=== PATIENT | male | born 1955 | race Caucasian/White ===

== ENCOUNTER 2018-09-29 07:55 | Inpatient (IN) | payer MEDICARE, OTHER ==
[2018-09-29] VITALS (13 sets, daily range): BP systolic 108–149; BP diastolic 62–103
[~2018-09-29] VITALS: Ht 177.8 cm; Wt 110.3 kg
[2018-09-29] MEDS ORDERED: OMEP20CA12 PO (08:16)
[2018-09-29] MEDS ORDERED: IBUP-1780 PO (08:16)
--- NOTE | 2018-09-29 08:28 | ED GI ---
General Chief Complaint: Abdominal/GI Problems Stated Complaint: VOMITING UP BLOOD Nursing Triage Note: AMBULATED TO ROOM 05 WITH COMPLAINTS OF VOMITING BLOOD AND BLACK STOOLS STARTING IN THE MIDDLE OF THE NIGHT. STATES HE FLEW IN FROM [place] YESTERDAY AND DID NOT FEEL WELL ON THE PLANE. Sepsis Screen: No Definite Risk History of Present Illness Date Seen by Provider: September 29, 2018 Time Seen by Provider: 08:15 Timing/Duration: 4-6 Hours Severity/Quality: Other (no pain) Location: Other (no pain) Radiation: No Radiation Activities at Onset: Sleeping Modifying Factors: Improves With Lying down (worsens) Associated Symptoms: Nausea/Vomiting The patient is a pleasant 63-year-old male who presents for evaluation of nausea and vomiting since around 0330 this morning. He reports his vomitus has been dark in color. He vomited approximately 5 times this morning. She also reports dark colored stools which he first noticed this morning. He reports that he is from the [facility] and recently flew here for a family graduation ceremony. He has had no abdominal or other pain since his symptoms began. He takes a baby aspirin daily but reports not taking one for a few days. He also states that he used his take a lot of ibuprofen but has not taken any in the last few days. He does take omeprazole but denies any history of gastric ulcer or GI bleeding in the past. He did bring in a sample in a cup of his dark hematemesis to be evaluated. He is alert and oriented 4, calm, and appears to be in no distress this time. He denies chest pain, shortness of breath, abdominal pain, back or flank pain, urinary symptoms, dizziness, diaphoresis, syncope, fevers or chills, rectal pain, or recent trauma. He does report a history of diverticulitis in the past. Allergies and Home Medications Allergies Coded Allergies: No Known Drug Allergies (Unverified , 09/29/18) Patient Home Medication List Home Medication List Reviewed: Yes Review of Systems Review of Systems Constitutional: no symptoms reported EENTM: No Symptoms Reported Respiratory: No Symptoms Reported Cardiovascular: No Symptoms Reported Gastrointestinal: See HPI, Nausea, Rectal Bleeding (dark stools), Vomiting ( dark vomiting/coffee ground emesis) Genitourinary: No Symptoms Reported Musculoskeletal: no symptoms reported Skin: no symptoms reported Psychiatric/Neurological: No Symptoms Reported Endocrine: No Symptoms Reported Hematologic/Lymphatic: No Symptoms Reported All Other Systems Reviewed Negative Unless Noted: Yes Past Catasqd-Richrl-Ornvib Hx Past Med/Social Hx: Reviewed Nursing Past Med/Soc Hx, Reviewed and Corrections made Patient Social History Alcohol Use: Occasionally Uses Recreational Drug Use: No Smoking Status: Never a Smoker Recent Foreign Travel: No Contact w/Someone Who Travel: No Recent Infectious Disease Expo: No Recent Hopitalizations: No Seasonal Allergies Seasonal Allergies: No Past Medical History Surgeries: Yes Orthopedic, Vasectomy Respiratory: No Cardiac: Yes (PAST HISTORY OF HYPERTENSION) Genitourinary: No Gastrointestinal: Yes (diverticulitis, gerd) Endocrine: No HEENT: No Cancer: No Psychosocial: No Integumentary: No Physical Exam Vital Signs Vital Signs - First Documented 09/29/18 08:00 Temp 98.5 Pulse 97 Resp 16 B/P (MAP) 106/66 (79) Pulse Ox 94 O2 Delivery Room Air Capillary Refill : Less Than 3 Seconds Height/Weight/BMI Height: 5'10.00" Weight: 223lbs. oz. 101.074338fx; BMI Method:Stated General Appearance: WD/WN, no apparent distress HEENT: PERRL/EOMI, normal ENT inspection, TMs normal, pharynx normal Neck: non-tender, full range of motion, supple, normal inspection Respiratory: chest non-tender, lungs clear, normal breath sounds, no respiratory distress, no accessory muscle use Cardiovascular: regular rate, rhythm, no edema, no JVD, no murmur Peripheral Pulses: 2+ Dorsalis Pedis (R), 2+ Left Dors-Pedis (L), 2+ Radial Pulses (R), 2+ Radial Pulses (L) Gastrointestinal: normal bowel sounds, non tender, soft, no organomegaly, no pulsatile mass Extremities: normal range of motion, non-tender, normal inspection, no pedal edema, no calf tenderness Back: normal inspection, no CVA tenderness Neurologic/Psychiatric: assembler for puller over hand II-XII nml as tested, no motor/sensory deficits, alert, normal mood/affect, oriented x 3 Skin: normal color, warm/dry Lymphatic: no adenopathy Progress/Results/Core Measures Results/Orders Lab Results Laboratory Tests Test 09/29/18 08:20 09/29/18 09:05 09/29/18 09:25 Range/Units White Blood Count 11.9 H 4.3-11.0 10^3/uL Red Blood Count 4.03 L 4.35-5.85 10^6/uL Hemoglobin 12.7 L 13.3-17.7 G/DL Hematocrit 37 L 40-54 % Mean Corpuscular Volume 92 80-99 FL Mean Corpuscular Hemoglobin 32 25-34 PG Mean Corpuscular Hemoglobin Concent 34 32-36 G/DL Red Cell Distribution Width 12.1 10.0-14.5 % Platelet Count 261 130-400 10^3/uL Mean Platelet Volume 9.8 7.4-10.4 FL Neutrophils (%) (Auto) 70 42-75 % Lymphocytes (%) (Auto) 24 12-44 % Monocytes (%) (Auto) 5 0-12 % Eosinophils (%) (Auto) 1 0-10 % Basophils (%) (Auto) 1 0-10 % Neutrophils # (Auto) 8.3 H 1.8-7.8 X 10^3 Lymphocytes # (Auto) 2.8 1.0-4.0 X 10^3 Monocytes # (Auto) 0.6 0.0-1.0 X 10^3 Eosinophils # (Auto) 0.1 0.0-0.3 10^3/uL Basophils # (Auto) 0.1 0.0-0.1 10^3/uL Prothrombin Time 14.7 12.2-14.7 SEC INR Comment 1.1 0.8-1.4 Activated Partial Thromboplast Time 28 24-35 SEC Sodium Level 142 135-145 MMOL/L Potassium Level 4.3 3.6-5.0 MMOL/L Chloride Level 102 98-107 MMOL/L Carbon Dioxide Level 23 21-32 MMOL/L Anion Gap 17 H 5-14 MMOL/L Blood Urea Nitrogen 38 H 7-18 MG/DL Creatinine 0.90 0.60-1.30 MG/DL Estimat Glomerular Filtration Rate > 60 BUN/Creatinine Ratio 42 Glucose Level 191 H 70-105 MG/DL Calcium Level 8.8 8.5-10.1 MG/DL Corrected Calcium 8.7 8.5-10.1 MG/DL Total Bilirubin 1.5 H 0.1-1.0 MG/DL Aspartate Amino Transf (AST/SGOT) 30 5-34 U/L Alanine Aminotransferase (ALT/SGPT) 51 0-55 U/L Alkaline Phosphatase 58 40-136 U/L Total Protein 6.6 6.4-8.2 GM/DL Albumin 4.1 3.2-4.5 GM/DL Amylase Level 25 25-125 U/L Lipase 20 8-78 U/L Gastric Fluid Occult Blood POSITIVE H NEGATIVE Stool Occult Blood Immunoassay NEGATIVE Urine Color YELLOW Urine Clarity CLEAR Urine pH 6.5 5-9 Urine Specific [place] 1.010 L 1.016-1.022 Urine Protein TRACE NEGATIVE Urine Glucose (UA) NEGATIVE NEGATIVE Urine Ketones 1+ H NEGATIVE Urine Nitrite NEGATIVE NEGATIVE Urine Bilirubin NEGATIVE NEGATIVE Urine Urobilinogen 0.2 NORMAL MG/DL Urine Leukocyte Esterase NEGATIVE NEGATIVE Urine RBC (Auto) NEGATIVE NEGATIVE Urine RBC NONE /HPF Urine WBC NONE /HPF Urine Squamous Epithelial Cells 0-2 /HPF Urine Crystals NONE /LPF Urine Bacteria NONE /HPF Urine Casts NONE /LPF Urine Mucus SMALL H /LPF Urine Culture Indicated NO My Orders Orders - TSERING KLINE DO Comprehensive Metabolic Panel (09/29/18 08:17) Lipase (09/29/18 08:17) Amylase (09/29/18 08:17) Ua Culture If Indicated (09/29/18 08:17) Ed Iv/Invasive Line Start (09/29/18 08:17) Cbc With Automated Diff (09/29/18 08:17) Ct Abdomen/Pelvis W (09/29/18 08:17) Pantoprazole Injection (Protonix Injecti (09/29/18 08:30) Protime With Inr (09/29/18 08:17) Partial Thromboplastin Time (09/29/18 08:17) Type And Screen (09/29/18 08:17) Ondansetron Injection (Zofran Injectio (09/29/18 08:30) Ns (Ivpb) (Sodium C... W/Pantoprazole In (09/29/18 08:30) Ns Iv 1000 Ml (Sodium Chloride 0.9%) (09/29/18 08:30) Occult Blood Stool (09/29/18 08:30) Iohexol Injection (Omnipaque 350 Mg/Ml 1 (09/29/18 09:00) Received Contrast (Hold Metformin- Contr (09/29/18 09:00) Sodium Chloride Flush (Catheter Flush Sy (09/29/18 09:00) Ns (Ivpb) (Sodium Chloride 0.9% Ivpb Bag (09/29/18 09:00) Occult Blood Stool (09/29/18 09:18) Occult Blood,Gastric Fluid (09/29/18 09:18) Medications Given in ED Current Medications Medications Dose Ordered Sig/Jm Route Start Time Stop Time Status Last Admin Dose Admin Iohexol 100 ml ONCE ONCE IV 09/29/18 09:00 09/29/18 09:03 DC 09/29/18 09:14 100 ML Ondansetron HCl 4 mg ONCE ONCE IVP 09/29/18 08:30 09/29/18 08:31 DC 09/29/18 08:26 4 MG Pantoprazole 80 mg ONCE ONCE IV 09/29/18 08:30 09/29/18 08:31 DC 09/29/18 08:27 80 MG Sodium Chloride 10 ml NEEDED PRN IV 09/29/18 09:00 09/29/18 09:14 10 ML Sodium Chloride 100 ml ONCE ONCE IV 09/29/18 09:00 09/29/18 09:03 DC 09/29/18 09:14 80 ML Vital Signs/I&O 09/29/18 08:00 Temp 98.5 Pulse 97 Resp 16 B/P (MAP) 106/66 (79) Pulse Ox 94 O2 Delivery Room Air Blood Pressure Mean: 79 Progress Progress Note : Time: 09:55 Progress Note @0955 - Patient informed of lab and imaging results. He does agree with the plan to be admitted to have a GI consultation/evaluation and likely EGD. VSS. Dr. Alexia Basilio paged for admission. Diagnostic Imaging Diagonstic Imaging: CT Plain Films/CT/US/NM/MRI: abdomen Comments [facility] [place] NAME: MARIJA GRIFFITHS [facility] REC#: [id number] PT STATUS: REG ER : 1955 PHYSICIAN: TSERING KLINE DO ADMIT DATE: 09/29/18/ER FS Draft Date of Exam:09/29/18 CT ABDOMEN/PELVIS W PROCEDURE: CT abdomen and pelvis with contrast. TECHNIQUE: Multiple contiguous axial images were obtained through the abdomen and pelvis after administration of intravenous contrast. Auto Exposure Controls were utilized during the CT exam to meet ALARA standards for radiation dose reduction. INDICATION: Hematochezia. COMPARISON: None. FINDINGS: The lung bases are clear. The liver, gallbladder, pancreas, spleen, adrenals, kidneys, collecting systems and bladder are negative. No evidence of appendicitis. Moderate colonic diverticulosis without evidence of active diverticulitis. No free intraperitoneal air or fluid. No lymphadenopathy. No evidence of bowel obstruction or inflammation. Moderate spondylotic changes in the visualized spine. No acute osseous findings. IMPRESSION: 1. No acute CT findings in the abdomen or pelvis. 2. Colonic diverticulosis without evidence of active diverticulitis. Dictated on workstation # [id number] Dict: 09/29/18 0939 Trans: 09/29/18 0944 [facility] [id number] Interpreted by: LEONORA RYDER MD Electronically signed by: Departure Communication (Admissions) Time/Spoke to Admitting Phy: 10:00 @1000 - Dr. Alexia Basilio accepts the admission to the ICU. Impression Primary Impression: Upper GI bleeding Additional Impression: Nausea & vomiting Disposition: ADMITTED INPATIENT Condition: Critical Admissions Decision to Admit Reason: Admit from ER (General) Decision to Admit/Date: September 29, 2018 Time/Decision to Admit Time: 10:00 TSERING KLINE DO September 29, 2018 08:28
[2018-09-29 08:29] LABS: HEMATOCRIT 37 % (40-54); HEMOGLOBIN 12.7 G/DL (13.3-17.7); MEAN CORPUSCULAR HEMOGLOBIN 32 PG (25-34); MEAN CORPUSCULAR HGB CONC 34 G/DL (32-36); MEAN CORPUSCULAR VOLUME 92 FL (80-99); RED CELL DISTRIBUTION WIDTH 12.1 % (10.0-14.5); WHITE BLOOD COUNT 11.9 10^3/uL (4.3-11.0)
[2018-09-29 08:30] LABS: BASOPHILS # (AUTO) 0.1 10^3/uL (0.0-0.1); BASOPHILS % (AUTO) 1 % (0-10); EOSINOPHILS # (AUTO) 0.1 10^3/uL (0.0-0.3); EOSINOPHILS % (AUTO) 1 % (0-10); LYMPHOCYTES # (AUTO) 2.8 X 10^3 (1.0-4.0); LYMPHOCYTES % (AUTO) 24 % (12-44); MEAN PLATELET VOLUME 9.8 FL (7.4-10.4); MONOCYTES # (AUTO) 0.6 X 10^3 (0.0-1.0); MONOCYTES % (AUTO) 5 % (0-12); NEUTROPHILS # (AUTO) 8.3 X 10^3 (1.8-7.8); NEUTROPHILS % (AUTO) 70 % (42-75); PLATELET COUNT 261 10^3/uL (130-400)
[2018-09-29] MEDS ORDERED: PANTOPRAZOLE 40 MG (PROTONIX) VIAL IV ONE (08:30)
[2018-09-29] MEDS ORDERED: ONDANSETRON 4 MG/2 ML (SDV) Z0FRAN IVP ONE (08:30)
[2018-09-29] MEDS ORDERED: NS IV 1000 ML 1,000 ML IV SCH (08:30)
[2018-09-29] MEDS: PANTOPRAZOLE INJECTION 200 MG in NS (IVPB) 100 ML IV SCH (08:38)
[2018-09-29 08:40] LABS: INR 1.1 (0.8-1.4); PROTHROMBIN TIME PATIENT 14.7 SEC (12.2-14.7)
[2018-09-29 08:51] LABS: ALANINE AMINOTRANSFERASE 51 U/L (0-55); BILIRUBIN,TOTAL 1.5 MG/DL (0.1-1.0); BUN/CREATININE RATIO 42; CALCIUM 8.8 MG/DL (8.5-10.1); CARBON DIOXIDE 23 MMOL/L (21-32); CHLORIDE 102 MMOL/L (98-107); GFR ESTIMATED > 60; GLUCOSE 191 MG/DL (70-105); POTASSIUM 4.3 MMOL/L (3.6-5.0); SODIUM 142 MMOL/L (135-145)
[2018-09-29 08:52] LABS: ALBUMIN 4.1 GM/DL (3.2-4.5); AMYLASE 25 U/L (25-125); TOTAL PROTEIN 6.6 GM/DL (6.4-8.2)
--- NOTE | 2018-09-29 08:59 | NUR ---
UP AMBULATED TO BATHROOM.
[2018-09-29] MEDS ORDERED: NS 100 ML (IVPB) BAG IV ONE (09:00)
[2018-09-29] MEDS ORDERED: HOLD METFORMIN - RECEIVED CONTRAST 20 ML VIAL IV SCH (09:00)
[2018-09-29] MEDS ORDERED: CATHETER FLUSH 10 ML SYR IV PRN (09:00)
[2018-09-29] MEDS ORDERED: IOHEXOL 350 MG/ML 100 ML (OMNIPAQUE 350) VIAL IV ONE (09:00)
[2018-09-29 09:08] LABS: ALKALINE PHOSPHATASE 58 U/L (40-136); LIPASE 20 U/L (8-78)
--- NOTE | 2018-09-29 09:08 | NUR ---
PT STOOL IS DARK BLACK ET VOMIT IS DARK RED. BOTH SENT TO LAB FOR OCCULT TESTING.
[2018-09-29 09:25] LABS: OCCULT BLOOD,GASTRIC FLUID POSITIVE (NEGATIVE)
[2018-09-29 09:35] LABS: BILIRUBIN,URINE NEGATIVE (NEGATIVE); CLARITY,URINE CLEAR; COLOR,URINE YELLOW; GLUCOSE, URINE (UA) NEGATIVE (NEGATIVE); KETONES,URINE 1+ (NEGATIVE); LEUKOCYTE ESTERASE ,URINE NEGATIVE (NEGATIVE); NITRITE,URINE NEGATIVE (NEGATIVE); PH,URINE 6.5 (5-9); PROTEIN,URINE TRACE (NEGATIVE); SQUAMOUS EPITHELIAL CELL,UR 0-2 /HPF; UROBILINOGEN,URINE 0.2 MG/DL (NORMAL)
--- NOTE | 2018-09-29 09:45 | Diagnostic Imaging Report ---
PROCEDURE: CT abdomen and pelvis with contrast. TECHNIQUE: Multiple contiguous axial images were obtained through the abdomen and pelvis after administration of intravenous contrast. Auto Exposure Controls were utilized during the CT exam to meet ALARA standards for radiation dose reduction. INDICATION: Hematochezia. COMPARISON: None. FINDINGS: The lung bases are clear. The liver, gallbladder, pancreas, spleen, adrenals, kidneys, collecting systems and bladder are negative. No evidence of appendicitis. Moderate colonic diverticulosis without evidence of active diverticulitis. No free intraperitoneal air or fluid. No lymphadenopathy. No evidence of bowel obstruction or inflammation. Moderate spondylotic changes in the visualized spine. No acute osseous findings. IMPRESSION: 1. No acute CT findings in the abdomen or pelvis. 2. Colonic diverticulosis without evidence of active diverticulitis. Dictated by: Dictated on workstation # [id number]
--- NOTE | 2018-09-29 09:52 | NUR ---
IN ROOM TALKING TO PT AT THIS TIME.
--- NOTE | 2018-09-29 10:10 | NUR ---
PT RESTING WITH EYES CLOSED.
--- NOTE | 2018-09-29 11:07 | NUR ---
DR NOTIFIED PT WOULD LIKE SOMETHING FOR HIS HEADACHE.
--- NOTE | 2018-09-29 11:20 | NUR ---
REMINDED OF PT'S HEADACHE.
[2018-09-29] MEDS ORDERED: ACETAMINOPHEN 500 MG TAB (TYLENOL) PO ONE (11:30)
--- NOTE | 2018-09-29 11:50 | NUR ---
[facility] HERE FOR PT.
--- NOTE | 2018-09-29 12:42 | NUR ---
MARIJA GRIFFITHS admitted to room CU5-1, with an admitting diagnosis of GI BLEED, on 09/29/18 from ER via [facility], accompanied by EMS.MARIJA GRIFFITHS introduced to surroundings, call light, bed controls, phone, TV, temperature control, lights, meal times, smoking policy, visitor policy, side rail policy, bathrooms and showers. Patient Rights given to patient in the handbook. MARIJA GRIFFITHS verbalizes understanding that [facility] is not responsible for the loss or damage to any personal effects or valuables that are kept in the patients posession during their hospitalization. The following Patient Care Plans were discussed with the PT: Discharge Planning, FLUID VOLUME DEFICIT,PAIN, and ANXIETY. MARIJA GRIFFITHS verbalizes understanding of Interdisciplinary Patient Education. Patient and family were informed about the Rapid Response Team and its purpose.
[2018-09-29] MEDS: NS IV 1000 ML 1,000 ML IV SCH ×2 (13:21→21:27)
--- NOTE | 2018-09-29 14:49 | History & Physical-Hospitalist ---
History of Present Illness HPI/Chief Complaint This is a 63-year-old white male who is visiting [place] from [place]. He became ill and began having black tarry sticky stools that were loose and frequent and then began vomiting coffee ground emesis that turned into bloody. He had an upper endoscopy about 15 years ago and he is current on his colonoscopies. Patient has never had a similar experience. Source: patient Exam Limitations: no limitations Date Seen 09/29/18 Time Seen by a Provider: 14:30 Attending Physician Alexia García MD PCP No,Local Physician Referring Physician Date of Admission September 29, 2018 at 10:10 Home Medications & Allergies Home Medications Reviewed patient Home Medication Reconciliation performed by pharmacy medication reconciliations legal technician and/or nursing. Patients Allergies have been reviewed. Allergies Allergies Coded Allergies No Known Drug Allergies (Unverified09/29/18) Past Bmnrxdw-Uibxxm-Uecydw Hx Past Med/Social Hx: Reviewed Nursing Past Med/Soc Hx, Reviewed and Corrections made Patient Social History Marrital Status: Employed/Student: retired Alcohol Use: Occasionally Uses Recreational Drug Use: No Smoking Status: Never a Smoker Recent Foreign Travel: No Contact w/other who traveled: No Recent Hopitalizations: No Recent Infectious Disease Expo: No Immunizations Up To Date Date of Pneumonia Vaccine: Feb 25, 2018 Seasonal Allergies Seasonal Allergies: No Past Medical History Surgeries: Orthopedic, Vasectomy Cardiac: Hypertension Musculoskeletal: Degenerate Disk Disease HEENT: Tinnitis Family History Diabetes mellitus 19 FATHER FH: breast cancer 19 MOTHER Rectal cancer G8 BROTHER Review of Systems Constitutional: see HPI EENTM: no symptoms reported Respiratory: no symptoms reported Cardiovascular: no symptoms reported Gastrointestinal: hematemesis, melena, nausea, vomiting Genitourinary: no symptoms reported Musculoskeletal: back pain Skin: no symptoms reported Psychiatric/Neurological: No Symptoms Reported Physical Exam Physical Exam Vital Signs Vital Signs - First Documented 09/29/18 08:00 Temp 98.5 Pulse 97 Resp 16 B/P (MAP) 106/66 (79) Pulse Ox 94 O2 Delivery Room Air Capillary Refill : Less Than 3 Seconds Height, Weight, BMI Height: 5'10.00" Weight: 237lbs. 2.0oz. 107.487424ga; 34.0 BMI Method:Stated General Appearance: No Apparent Distress, WD/WN HEENT: Pale Conjunctivae (R) Neck: Non Tender, Limited Range of Motion Respiratory: Chest Non Tender, Lungs Clear, Normal Breath Sounds, No Accessory Muscle Use, No Respiratory Distress Cardiovascular: Regular Rate, Rhythm, No Gallop, No Murmur, Normal Peripheral Pulses Gastrointestinal: Normal Bowel Sounds, No Organomegaly, No Pulsatile Mass, Non Tender, Soft Rectal: Heme Positive Stool Back: Normal Inspection, No CVA Tenderness, No Vertebral Tenderness Extremity: No Calf Tenderness, No Pedal Edema Neurologic/Psychiatric: Alert, Oriented x3, No Motor/Sensory Deficits, Normal Mood/Affect, contracts attorney II-XII Norm as Tested Skin: Normal Color, Warm/Dry Lymphatic: No Adenopathy Results Results/Procedures Labs Laboratory Tests 09/29/18 08:20 Patient resulted labs reviewed. Assessment/Plan Admission Diagnosis 1. Upper GI bleed 2. Arthritis and chronic back pain and long-term nonsteroidal use 3. Remote history of hypertension off medications currently Plan to admit he is on a proton pump inhibitor IV drip will consult surgery for upper endoscopy tomorrow and probably discharge after that Admission Status: Observation Clinical Quality Measures DVT/VTE Risk/Contraindication: Risk Factor Score Per Nursin RFS Level Per Nursing on Admit: 3=High ALEXIA GARCÍA MD September 29, 2018 14:49
[2018-09-29] MEDS ORDERED: ONDANSETRON 4 MG/2 ML (SDV) Z0FRAN IVP PRN (15:45)
--- NOTE | 2018-09-29 15:52 | Consultation (Surgery) ---
History of Present Illness History of Present Illness Patient Consulted On(andre/time) 09/29/18 15:45 Date Seen by Provider: September 29, 2018 Time Seen by Provider: 15:45 History of Present Illness Consult requested by Dr. Basilio for hematemesis and melena. 63 y/o M with PMH of HTN which no longer requires medication, presented to [place] ED after getting off a plane from [place] with above complaints. He was transferred to our hospital and surgery consult was requested. He states that hematemesis started at 3:30 am this morning and continued till 7 am. He reported 5 episodes prior to arrival to ED and an additional episode in the ED. The color was described as "Merlot" with bright red specks. He denies previous episodes of forceful retching prior to hematemesis, and denies previous episodes. His first episode of melena was while on the plane around 10 pm the night before admission. He states that he had 4 episodes of melena, and was a significant amount and gushing. He describes it as being dark reddish/black, not initially tarry, however later became sticky looking and black. There is a family history of colon cancer. PSH includes a left knee replacement, and left trigger finger (thumb) release. He has no allergies. He also complains of headache located to the occipital region that radiates to his neck, is throbbing in nature and causes eye pain as well. He denies chest pain, shortness of breath, abdominal pain, syncope, nausea and vomiting. Allergies and Home Medications Allergies Coded Allergies: No Known Drug Allergies (Unverified , 09/29/18) Patient Home Medication List Home Medication List Reviewed: Yes Past Ycgmblw-Dvrnpa-Bfjetw Hx Patient Social History Alcohol Use: Occasionally Uses Recreational Drug Use: No Smoking Status: Never a Smoker Recent Foreign Travel: No Contact w/Someone Who Travel: No Recent Infectious Disease Expo: No Recent Hopitalizations: No Immunizations Up To Date Date of Pneumonia Vaccine: Feb 25, 2018 Seasonal Allergies Seasonal Allergies: No Surgeries History of Surgeries: Yes Surgeries: Orthopedic, Vasectomy Respiratory History of Respiratory Disorde: No Cardiovascular History of Cardiac Disorders: Yes (PAST HISTORY OF HYPERTENSION) Cardiac Disorders: Hypertension Genitourinary History of Genitourinary Disor: No Gastrointestinal History of Gastrointestinal Di: Yes (diverticulitis, gerd) Musculoskeletal Musculoskeletal Disorders: Degenerate Disk Disease Endocrine History of Endocrine Disorders: No HEENT History of HEENT Disorders: No HEENT Disorders: Tinnitis Cancer History of Cancer: No Psychosocial History of Psychiatric Problem: No Integumentary History of Skin or Integumenta: No Family Medical History Significant Family History: Cancer (Colon) Family Medial History: Diabetes mellitus 19 FATHER FH: breast cancer 19 MOTHER Rectal cancer G8 BROTHER Review of Systems-General Constitutional: no symptoms reported EENTM: no symptoms reported Respiratory: no symptoms reported Cardiovascular: no symptoms reported Gastrointestinal: see HPI Genitourinary: no symptoms reported Musculoskeletal: no symptoms reported Skin: no symptoms reported Psychiatric/Neurological: No Symptoms Reported Physical Exam-General Problems Physical Exam Vital Signs Vital Signs - First Documented 09/29/18 08:00 Temp 98.5 Pulse 97 Resp 16 B/P (MAP) 106/66 (79) Pulse Ox 94 O2 Delivery Room Air Capillary Refill : Less Than 3 Seconds General Appearance: WD/WN, no apparent distress HEENT: PERRL/EOMI, normal ENT inspection Neck: non-tender, supple Respiratory: chest non-tender, lungs clear, normal breath sounds, no respiratory distress, no accessory muscle use Cardiovascular: normal peripheral pulses, regular rate, rhythm, no edema Gastrointestinal: non tender, soft, no organomegaly, no pulsatile mass Rectal: deferred Back: no CVA tenderness Extremities: normal range of motion, non-tender, normal inspection Neurologic/Psychiatric: production assembler II-XII nml as tested, alert, normal mood/affect, oriented x 3 Skin: normal color, warm/dry Data Review Labs Laboratory Tests 09/29/18 08:20: White Blood Count 11.9H, Red Blood Count 4.03L, Hemoglobin 12.7L, Hematocrit 37L , Mean Corpuscular Volume 92, Mean Corpuscular Hemoglobin 32, Mean Corpuscular Hemoglobin Concent 34, Red Cell Distribution Width 12.1, Platelet Count 261, Mean Platelet Volume 9.8, Neutrophils (%) (Auto) 70, Lymphocytes (%) (Auto) 24, Monocytes (%) (Auto) 5, Eosinophils (%) (Auto) 1, Basophils (%) (Auto) 1, Neutrophils # (Auto) 8.3H, Lymphocytes # (Auto) 2.8, Monocytes # (Auto) 0.6, Eosinophils # (Auto) 0.1, Basophils # (Auto) 0.1, Prothrombin Time 14.7, INR Comment 1.1, Activated Partial Thromboplast Time 28, Sodium Level 142, Potassium Level 4.3, Chloride Level 102, Carbon Dioxide Level 23, Anion Gap 17H , Blood Urea Nitrogen 38H, Creatinine 0.90, Estimat Glomerular Filtration Rate > 60, BUN/Creatinine Ratio 42, Glucose Level 191H, Calcium Level 8.8, Corrected Calcium 8.7, Total Bilirubin 1.5H, Aspartate Amino Transf (AST/SGOT) 30, Alanine Aminotransferase (ALT/SGPT) 51, Alkaline Phosphatase 58, Total Protein 6.6, Albumin 4.1, Amylase Level 25, Lipase 20 09/29/18 09:05: Gastric Fluid Occult Blood POSITIVEH, Stool Occult Blood Immunoassay 09/29/18 09:25: Urine Color YELLOW, Urine Clarity CLEAR, Urine pH 6.5, Urine Specific [place] 1.010L, Urine Protein TRACE, Urine Glucose (UA) NEGATIVE, Urine Ketones 1+H, Urine Nitrite NEGATIVE, Urine Bilirubin NEGATIVE, Urine Urobilinogen 0.2, Urine Leukocyte Esterase NEGATIVE, Urine RBC (Auto) NEGATIVE, Urine RBC NONE, Urine WBC NONE, Urine Squamous Epithelial Cells 0-2, Urine Crystals NONE, Urine Bacteria NONE, Urine Casts NONE, Urine Mucus SMALLH, Urine Culture Indicated NO Assessment/Plan Assessment/Plan Assessment/Plan Hematemesis Melena Upper GI Bleed On protonix drip CLD NPO after midnight Discussed risks and benefits of EGD to further evaluate, Understands and wishes to proceed Zofran for nausea EGD planned for tomorrow Clinical Quality Measures DVT/VTE Risk/Contraindication: Risk Factor Score Per Nursin RFS Level Per Nursing on Admit: 3=High KIP BRAXTON DO September 29, 2018 15:52
[2018-09-30] VITALS (15 sets, daily range): BP systolic 101–145; BP diastolic 59–92
[2018-09-30 04:02] LABS: BASOPHILS % (AUTO) 0 % (0-10); EOSINOPHILS # (AUTO) 0.3 10^3/uL (0.0-0.3); EOSINOPHILS % (AUTO) 3 % (0-10); HEMATOCRIT 30 % (40-54); HEMOGLOBIN 9.9 G/DL (13.3-17.7); LYMPHOCYTES # (AUTO) 3.4 X 10^3 (1.0-4.0); LYMPHOCYTES % (AUTO) 36 % (12-44); MEAN CORPUSCULAR HEMOGLOBIN 31 PG (25-34); MEAN CORPUSCULAR HGB CONC 34 G/DL (32-36); MEAN CORPUSCULAR VOLUME 93 FL (80-99); MEAN PLATELET VOLUME 10.2 FL (7.4-10.4); MONOCYTES # (AUTO) 0.8 X 10^3 (0.0-1.0); MONOCYTES % (AUTO) 8 % (0-12); NEUTROPHILS # (AUTO) 4.9 X 10^3 (1.8-7.8); NEUTROPHILS % (AUTO) 53 % (42-75); PLATELET COUNT 187 10^3/uL (130-400); RED CELL DISTRIBUTION WIDTH 12.5 % (10.0-14.5); WHITE BLOOD COUNT 9.3 10^3/uL (4.3-11.0)
[2018-09-30 04:33] LABS: BUN/CREATININE RATIO 24; CALCIUM 8.1 MG/DL (8.5-10.1); CARBON DIOXIDE 22 MMOL/L (21-32); CHLORIDE 112 MMOL/L (98-107); CREATININE SERUM 0.92 MG/DL (0.60-1.30); GFR ESTIMATED > 60; GLUCOSE 111 MG/DL (70-105); MAGNESIUM 1.8 MG/DL (1.8-2.4); PHOSPHORUS 2.7 MG/DL (2.3-4.7); POTASSIUM 3.9 MMOL/L (3.6-5.0); SODIUM 143 MMOL/L (135-145)
[2018-09-30] MEDS: NS IV 1000 ML 1,000 ML IV SCH ×2 (05:08→13:25)
[2018-09-30] MEDS ORDERED: MAGNESIUM 1 GM/100 ML IVPB 100 ML IV SCH (06:00)
[2018-09-30] MEDS ORDERED: POTASSIUM CL 10MEQ/50ML IVPB 50 ML IV SCH (06:00)
[2018-09-30] MEDS ORDERED: KCL 20 MEQ TAB (K-DUR) PO SCH (06:00)
[2018-09-30] MEDS: PANTOPRAZOLE INJECTION 200 MG in NS (IVPB) 100 ML IV SCH (07:31)
--- NOTE | 2018-09-30 07:37 | Diagnostic Imaging Report ---
INDICATION: GI bleed. COMPARISON: None. FINDINGS: Single view of the chest demonstrates minimal cardiac enlargement. Lungs are clear. There is no pneumothorax. Osseous structures normal. IMPRESSION: Minimal cardiac enlargement without pulmonary edema or infiltrate. Dictated by: Dictated on workstation # [id number]
[2018-09-30] MEDS ORDERED: NAPR220T66 PO (09:11)
[2018-09-30] MEDS ORDERED: CHOL10007 PO (09:11)
[2018-09-30] MEDS ORDERED: ASPI-983 PO (09:11)
[2018-09-30] MEDS ORDERED: MULT1TAB69 PO (09:11)
--- NOTE | 2018-09-30 09:13 | NUR ---
SPOKE WITH THE PATIENT ABOUT HIS MEDICATIONS. WE WENT OVER THE EXT MED HX AND HE LISTED WHAT HE TAKES OTC. HE STATES HE IS NO LONGER TAKING THE MELOXICAM OR THE LISINOPRIL. HE ASKED IF THE MELOXICAM WOULD BE BETTER FOR HIS STOMACH THAN THE ALEVE, I TOLD HIM TO DISCUSS WITH THE
[2018-09-30] MEDS ORDERED: proPOfol 200 MG/20 ML (DIPRIVAN) VIAL IV ONE (12:11)
--- NOTE | 2018-09-30 12:19 | Progress Note ---
Subjective Date Seen by a Provider: September 30, 2018 Time Seen by a Provider: 12:12 Subjective/Events-last exam not having any hematemesis at this time. No abdominal pain at this time. Hgb drop to 9.9. Denies any new complaints. Denies n/v fever sweats chills shortness of breath or chest pain. Objective Exam Vital Signs Date Time Temp Pulse Resp B/P (MAP) Pulse Ox O2 Delivery O2 Flow Rate FiO2 09/30/18 12:00 95 Room Air 09/30/18 11:00 74 13 143/92 (109) 94 Room Air 09/30/18 10:00 68 27 130/81 (97) 96 Room Air 09/30/18 09:12 73 12 119/65 (83) 96 Room Air 09/30/18 08:00 96.8 09/30/18 08:00 95 Room Air 09/30/18 07:00 81 09/30/18 07:00 75 11 105/71 (82) 93 Room Air 09/30/18 06:00 75 13 114/64 (81) 91 Room Air 09/30/18 05:00 65 12 101/71 (81) 95 Room Air 09/30/18 04:00 98.1 09/30/18 04:00 68 14 111/72 (85) 96 Room Air 09/30/18 04:00 95 Room Air 09/30/18 03:00 68 25 114/68 (83) 93 Room Air 09/30/18 02:00 66 13 110/65 (80) 93 Room Air 09/30/18 01:00 75 14 110/67 (81) 92 Room Air 09/30/18 01:00 75 09/30/18 00:00 98.5 09/30/18 00:00 78 12 111/59 (76) 93 Room Air 09/30/18 00:00 97 Room Air 09/29/18 23:00 73 15 117/72 (87) 94 Room Air 09/29/18 22:00 73 15 114/62 (79) 94 Room Air 09/29/18 21:06 114 21 144/86 (105) 95 Room Air 09/29/18 20:00 97 Room Air 09/29/18 20:00 98.0 09/29/18 20:00 78 27 149/90 (109) 96 Room Air 09/29/18 19:00 82 21 136/83 (100) 93 Room Air 09/29/18 19:00 82 09/29/18 17:00 92 23 145/89 (107) 94 Room Air 09/29/18 16:00 89 31 142/97 (112) 93 Room Air 09/29/18 15:32 99.5 09/29/18 15:13 Room Air 09/29/18 15:00 90 22 126/88 (101) 93 Room Air 09/29/18 14:00 93 24 129/85 (100) 93 Room Air 09/29/18 13:45 89 18 125/85 (98) 94 Room Air 09/29/18 13:30 94 17 128/103 (111) 95 Room Air 09/29/18 13:15 85 13 108/81 (90) 94 Room Air 09/29/18 13:02 99.2 09/29/18 13:01 89 09/29/18 13:00 86 16 126/87 (100) 93 Room Air 09/29/18 12:42 Room Air I & O 09/30/18 07:00 Intake Total 1100 ml Balance 1100 ml Capillary Refill : Less Than 3 Seconds General Appearance: No Apparent Distress, WD/WN HEENT: PERRL/EOMI, Pale Conjunctivae (R) Neck: Non Tender Respiratory: Chest Non Tender, Lungs Clear, Normal Breath Sounds, No Accessory Muscle Use, No Respiratory Distress Cardiovascular: Regular Rate, Rhythm, No Gallop, No Murmur, Normal Peripheral Pulses Peripheral Pulses: 2+ Dorsalis Pedis (R), 2+ Left Dors-Pedis (L), 2+ Radial Pulses (R), 2+ Radial Pulses (L) Gastrointestinal: non tender, soft, no organomegaly, no pulsatile mass Extremity: No Calf Tenderness, No Pedal Edema Neurologic/Psychiatric: Alert, Oriented x3, No Motor/Sensory Deficits, Normal Mood/Affect, manager personnel selection II-XII Norm as Tested Skin: Normal Color, Warm/Dry Lymphatic: No Adenopathy Results Lab Laboratory Tests 09/30/18 03:40: White Blood Count 9.3, Red Blood Count 3.16L, Hemoglobin 9.9#L, Hematocrit 30L, Mean Corpuscular Volume 93, Mean Corpuscular Hemoglobin 31, Mean Corpuscular Hemoglobin Concent 34, Red Cell Distribution Width 12.5, Platelet Count 187, Mean Platelet Volume 10.2, Neutrophils (%) (Auto) 53, Lymphocytes (%) (Auto) 36 , Monocytes (%) (Auto) 8, Eosinophils (%) (Auto) 3, Basophils (%) (Auto) 0, Neutrophils # (Auto) 4.9, Lymphocytes # (Auto) 3.4, Monocytes # (Auto) 0.8, Eosinophils # (Auto) 0.3, Basophils # (Auto) 0.0, Sodium Level 143, Potassium Level 3.9, Chloride Level 112#H, Carbon Dioxide Level 22, Anion Gap 9, Blood Urea Nitrogen 22H, Creatinine 0.92, Estimat Glomerular Filtration Rate > 60, BUN /Creatinine Ratio 24, Glucose Level 111H, Calcium Level 8.1L, Phosphorus Level 2.7, Magnesium Level 1.8 Assessment/Plan Assessment/Plan Assessment/Plan Hematemesis Melena Upper GI Bleed On protonix drip NPO Discussed risks and benefits of EGD to further evaluate, Understands and wishes to proceed Zofran for nausea EGD planned for today Clinical Quality Measures DVT/VTE Risk/Contraindication: Risk Factor Score Per Nursin RFS Level Per Nursing on Admit: 3=High KIP BRAXTON DO September 30, 2018 12:18
[2018-09-30] MEDS ORDERED: LACTATED RINGERS 1,000 ML IV ONE (12:26)
[2018-09-30] MEDS ORDERED: SUCR1TAB36 PO (14:14)
[2018-09-30] MEDS ORDERED: PANT40TA2 PO (14:14)
[2018-09-30 15:06] LABS: BASOPHILS % (AUTO) 0 % (0-10); EOSINOPHILS # (AUTO) 0.2 10^3/uL (0.0-0.3); EOSINOPHILS % (AUTO) 3 % (0-10); HEMATOCRIT 29 % (40-54); HEMOGLOBIN 9.7 G/DL (13.3-17.7); LYMPHOCYTES # (AUTO) 2.7 X 10^3 (1.0-4.0); LYMPHOCYTES % (AUTO) 38 % (12-44); MEAN CORPUSCULAR HEMOGLOBIN 32 PG (25-34); MEAN CORPUSCULAR HGB CONC 33 G/DL (32-36); MEAN CORPUSCULAR VOLUME 95 FL (80-99); MEAN PLATELET VOLUME 9.9 FL (7.4-10.4); MONOCYTES # (AUTO) 0.4 X 10^3 (0.0-1.0); MONOCYTES % (AUTO) 6 % (0-12); NEUTROPHILS # (AUTO) 3.7 X 10^3 (1.8-7.8); NEUTROPHILS % (AUTO) 52 % (42-75); PLATELET COUNT 187 10^3/uL (130-400); RED CELL DISTRIBUTION WIDTH 12.5 % (10.0-14.5)
[2018-09-30 15:24] LABS: BAND NEUTROPHILS 1 %; BASOPHILS % (MANUAL) 1 %; EOSINOPHILS % (MANUAL) 4 %; LYMPHOCYTES % (MANUAL) 48 %; MONOCYTES % (MANUAL) 6 %; NEUTROPHILS % (MANUAL) 40 %; RBC MORPH NORMAL
--- NOTE | 2018-09-30 15:46 | Progress Note-Hospitalist ---
Progress Note Progress Notes/Assess & Plan Date Seen 09/30/18 Time Seen by Provider: 15:42 Assessment & Plan The patient is a 63-year-old white male visiting here from [facility]. He reports that he did not feel well on the trip by plane. He got worse and had a black stool. He was seen in the emergency room and had heme positive stools. His initial hemoglobin in the emergency room was 12.7. It fell to 9.9 this morning. He was scheduled for endoscopy by Dr. Davila. I am informed by Dr. Davila that it an ulcer was seen but not actively bleeding he felt that the patient was a candidate for discharge this afternoon if a third hemoglobin was stable which it has been. Physical exam: He is alert and quite pleasant. Lungs are clear to auscultation. CV is regular without murmur. Abdomen is soft there is no pain to palpation. Impression: Upper GI bleed with endoscopically observed ulcer. Plan: Discharge. See discharge sequence for medications and routines. FRANCK SERRATO MD September 30, 2018 15:46
--- NOTE | 2018-09-30 15:52 | Discharge Inst-Simple/Standard ---
Discharge Inst-Standard Patient Instructions/Follow Up Plan of Care/Instructions/FU: Medications as listed on the discharge sequence. You may use Tylenol for your pain needs. Take a relatively bland small serving diet for the next few days. Activity as Tolerated: Yes Goal: Return to usual state of health. Discharge Diet: Eat Small Frequent Meals FRANCK SERRATO MD September 30, 2018 15:52
--- NOTE | 2018-09-30 16:05 | NUR ---
Pt discharged home at this time. Discharge instructions given to pt at this time. IV removed prior to discharge. No questions at this time. Pt taken to personal car at discharge.
--- NOTE | 2018-09-30 17:40 | Progress Note-Post Operative ---
Post-Operative Progess Note Surgeon (s)/Fire Marshal (s) Surgeon KIP BRAXTON DO Fire Marshal: na Pre-Operative Diagnosis hematemesis, gi bleed Post-Operative Diagnosis antral ulcer Procedure & Operative Findings Date of Procedure 09/30/18 Procedure Performed/Findings egd c biopsies Anesthesia Type per scheduling manager Estimated Blood Loss Estimated blood loss (mL): na Specimens/Packing Specimens Removed antrum, ge KIP BRAXTON DO September 30, 2018 17:40
--- NOTE | 2018-09-30 23:43 | OPERATIVE REPORT ---
DATE OF SERVICE: 09/30/2018 PREOPERATIVE DIAGNOSIS: Hematemesis, GI bleed. POSTOPERATIVE DIAGNOSIS: Antral ulcer. PROCEDURE: EGD with biopsies. SURGEON: Kip Davila DO. ANESTHESIA: Per OPERATIONS SUPPORT SPECIALIST. ESTIMATED BLOOD LOSS: None. COMPLICATIONS: None. INDICATIONS: The patient is a 63-year-old male, who was admitted to the Intensive Care Unit with hematemesis and GI bleed. The patient has been taking Aleve on a fairly regular basis he states. He has not had any further bleeding or any further hematemesis since being admitted. He understands the risks and benefits of the procedure and wished to proceed with procedure. Consent was signed in the chart. PROCEDURE: The patient was in the intensive care unit. Timeout was performed. Scope was inserted in the mouth down the esophagus into the duodenum without difficulty. No polyps, masses or ulcerations in the duodenum. The first portion of the duodenum, there were some slight erythematous changes, may be some slight duodenitis. The scope was then slowly retracted back in the stomach and further insufflated. In the antrum, a large ulcer was present to surrounding reactive changes. Biopsy of the antrum near the ulcer was obtained. Scope was retroflexed noting no other pathology. The scope was returned to its normal position, slowly withdrawn to the distal esophagus. Biopsy of the GE junction was obtained. No other pathology was noted. Scope was then slowly retracted back until completely removed noting no other pathology. RECOMMENDATIONS: The patient is to continue on Protonix and Carafate. The patient's hemoglobin did have a slight drop, but no active signs of any bleeding at this time. Job ID: [id number] DocumentID: [id number] Dictated Date: 09/30/2018 17:43:12 Skip Hoist Engineer Date: 09/30/2018 23:43:23 Dictated By: KIP DAVILA DO
== END 2018-09-30 16:05 | disposition home or self-care (01) | DRG 379 ==
LOC: ER FS 07:57 → ICU 10:10
PROVIDERS: ADMIT Internal Medicine; ATTEND Internal Medicine
PROC: 0DB48ZX Excision of Esophagogastric Junction, Via Natural or Artificial Opening Endoscopic, Diagnostic (ICD-10-PCS; 2018-09-30)
PROC: 0DB78ZX Excision of Stomach, Pylorus, Via Natural or Artificial Opening Endoscopic, Diagnostic (ICD-10-PCS; principal; 2018-09-30 11:20)
DX: K25.0 Acute gastric ulcer with hemorrhage (principal); K29.80 Duodenitis without bleeding; Z96.652 Presence of left artificial knee joint; I10 Essential (primary) hypertension; H93.19 Tinnitus, unspecified ear; M54.9 Dorsalgia, unspecified; M19.91 Primary osteoarthritis, unspecified site; Z80.0 Family history of malignant neoplasm of digestive organs; Z79.1 Long term (current) use of non-steroidal anti-inflammatories (NSAID); Z87.19 Personal history of other diseases of the digestive system
CPT/HCPCS: 36415; 71045; 74177; 80048; 80053; 81000; 82150; 82271; 82274; 83690; 83735; 84100; 85007; 85025; 85027; 85610; 85730; 86850; 86900; 86901; 87081; 96374; 96375